=== PATIENT | female | born 1995 | race African-American/Black ===

== ENCOUNTER 2017-01-02 17:38 | Emergency (ER) | payer OTHER ==
[2017-01-02] MEDS ORDERED: MORPHINE 10 MG/ML VIAL IVP STA (18:02)
--- NOTE | 2017-01-02 18:05 | ED Physician Documentation ---
PD HPI ABD PAIN - Stated complaint Stated Complaint: ABD PX - Chief complaint Chief Complaint: Abd Pain - History obtained from History obtained from: Patient - History of Present Illness Timing - onset: Other (21yo G0 with low abd pain that was sudden onset pelvic pain about 2pm today. Had a similar episode about 1 month ago that resolved without medical intervention. Pain is sharp, she feels it in the suprapubic area , not associated with nausea or vomiting. She does have chronic mild intermittent nausea after cholecystectomy was which was last year. She had a normal bowel movement yesterday. Her last menses was just under month ago and she should be due soon. 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 - Present Medications Home Medications: Ambulatory Orders Medication Instructions Recorded Confirmed No Known Home Medications [No 02/18/16 01/02/17 Known Home Medications] - Allergies Allergies/Adverse Reactions: Allergies Allergy/AdvReac Type Severity Reaction Status Date / Time No Known Drug Allergies Allergy Verified 01/02/17 19:17 - Social History Does the pt smoke?: Yes Smoking Status: Current every day smoker Does the pt drink ETOH?: No Does the pt have substance abuse?: No - Immunizations Immunizations are current?: Yes PD ED PE NORMAL - Vitals Vital signs reviewed: Yes - General General: Alert and oriented X 3, No acute distress - HEENT HEENT: PERRL, EOMI - Neck Neck: Supple, no meningeal sign, No bony TTP - Cardiac Cardiac: RRR, No murmur - Respiratory Respiratory: No respiratory distress, Clear bilaterally - Abdomen Abdomen: Normal bowel sounds, Soft, Other (She has modest suprapubic tenderness , mild lower quadrant tenderness on either side which does not lateralize. No surgical signs. No upper abdominal tenderness.) - Back Back: No CVA TTP, No spinal TTP - Derm Derm: Normal color, Warm and dry - Extremities Extremities: No edema, No calf tenderness / cord - Neuro Neuro: Alert and oriented X 3, Normal speech - Psych Psych: Normal mood, Normal affect Results - Vitals Vitals: Vital Signs - 24 hr 01/02/17 01/02/17 01/02/17 17:44 19:13 19:39 Temperature 36.8 C 36.8 C Heart Rate 82 79 68 Respiratory 16 16 14 Rate Blood Pressure 114/76 116/66 110/57 L O2 Saturation 100 99 99 01/02/17 21:45 Temperature 36.9 C Heart Rate 74 Respiratory 16 Rate Blood Pressure 102/59 L O2 Saturation 100 Oxygen O2 Source Room air - Labs Labs: Laboratory Tests 01/02/17 01/02/17 01/02/17 18:30 18:30 18:30 WBC 9.9 RBC 4.43 Hgb 13.8 Hct 42.1 MCV 94.9 MCH 31.2 H MCHC 32.9 RDW 12.3 Plt Count 281 MPV 8.4 Neut # 6.6 Lymph # 2.3 Saline # 0.8 Eos # 0.1 Baso # 0.0 Absolute Nucleated RBC 0.00 Nucleated RBC % 0.0 Sodium 138 Potassium 3.5 Chloride 102 Carbon Dioxide 26 Anion Gap 10.0 BUN 13 Creatinine 0.9 Estimated GFR (MDRD) 94 Glucose 79 Calcium 9.6 Total Bilirubin 0.6 AST 22 ALT 14 Alkaline Phosphatase 50 Total Protein 8.2 Albumin 4.7 Globulin 3.5 Albumin/Globulin Ratio 1.3 Lipase 31 Urine Color YELLOW Urine Clarity CLEAR Urine pH 6.0 Ur Specific [place] 1.025 Urine Protein NEGATIVE Urine Glucose (UA) NEGATIVE Urine Ketones NEGATIVE Urine Occult Blood TRACE-INTA Urine Nitrite NEGATIVE Urine Bilirubin NEGATIVE Urine Urobilinogen 0.2 (NORMAL) Ur Leukocyte Esterase NEGATIVE Ur Microscopic Review NOT INDICATED Urine Culture Comments NOT INDICATED Urine HCG, Qual NEGATIVE - Rads (name of study) Pelvic sono Radiology: Prelim report reviewed (Right ovary is enlarged and contains a mildly complex cyst measuring 5 cm with blood flow presents on Doppler and small free fluid in the pelvis.) PD MEDICAL DECISION MAKING - ED course ED course: 21-year-old non woman with sudden onset pelvic pain today Found to have ovarian cyst on ultrasound with benign labs. [place] better after Toradol. Departure - Departure Disposition: 01 Home, Self Care Clinical Impression: Ovarian cyst Qualifiers: Laterality: right Qualified Code(s): N83.201 - Unspecified ovarian cyst, right side Condition: Good Record reviewed to determine appropriate education?: Yes Instructions: ED Cyst Ovarian Comments: [place] give him[place]her a copy of the ultrasound read. I suspect he or she will want to get a repeat ultrasound in a few weeks to reassess the cyst and make sure it is gone. Discharge Date/Time: 01/02/17 22:03
[2017-01-02 18:40] LABS: BASOPHILS % (AUTO) 0.4 %; BILIRUBIN,URINE NEGATIVE (NEGATIVE); EOSINOPHILS # (AUTO) 0.1 10^3/uL (0.0-0.7); EOSINOPHILS % (AUTO) 1.4 %; HCT - HEMATOCRIT 42.1 % (37.0-47.0); HGB - HEMOGLOBIN 13.8 g/dL (12.0-16.0); LYMPHOCYTES # (AUTO) 2.3 10^3/uL (1.5-3.5); LYMPHOCYTES % (AUTO) 23.7 %; MEAN CORPUSCULAR HEMOGLOBIN 31.2 pg (27.0-31.0); MEAN CORPUSCULAR HGB CONC 32.9 g/dL (32.0-36.0); MEAN CORPUSCULAR VOLUME 94.9 fL (81.0-99.0); MEAN PLATELET VOLUME 8.4 fL (7.9-10.8); MONOCYTES # (AUTO) 0.8 10^3/uL (0.0-1.0); MONOCYTES % (AUTO) 7.9 %; NEUTROPHILS # (AUTO) 6.6 10^3/uL (1.5-6.6); NEUTROPHILS % (AUTO) 66.6 %; RED BLOOD COUNT 4.43 10^6/uL (4.20-5.40); RED CELL DISTRIBUTION WIDTH 12.3 % (12.0-15.0); UNCORRECTED WHITE BLOOD COUNT 9.9 x10^3/uL; WHITE BLOOD COUNT 9.9 x10^3/uL (4.8-10.8)
[2017-01-02 18:45] LABS: HCG UR QUAL NEGATIVE; UA CHARGE (STRIP ONLY) YES; UR CULTURE IF IND NOT INDICATED
[2017-01-02] MEDS ORDERED: MORPHINE 10 MG/ML VIAL ONE (18:45)
[2017-01-02 18:53] LABS: ALBUMIN/GLOBULIN RATIO 1.3 (1.0-2.2); BILIRUBIN,TOTAL 0.6 mg/dL (0.2-1.0); CALCIUM 9.6 mg/dL (8.5-10.3); CREATININE 0.9 mg/dL (0.4-1.0); POTASSIUM 3.5 mmol/L (3.5-5.0); TOTAL PROTEIN 8.2 g/dL (6.7-8.2)
[2017-01-02] MEDS ORDERED: KETOROLAC 60 MG/2 ML VIAL IVP STA (19:12)
[2017-01-02] MEDS ORDERED: KETOROLAC 30 MG/ML VIAL ONE (19:24)
--- NOTE | 2017-01-02 21:43 | Ultrasound Preliminary Report ---
Exam: US PELVIC COMPLETE - NON OB IMPRESSION: 1. Right ovary is enlarged and contains a mildly complex cyst measuring 5 cm. There is blood flow pre sent in the ovary on Doppler 2. Small free fluid in the pelvis. [facility] SITE ID: [id number]
[2017-01-02 21:45] VITALS: BP 102/59
--- NOTE | 2017-01-02 21:46 | Ultrasound Report ---
EXAM: PELVIC ULTRASOUND EXAM DATE: 01/02/2017 08:13 PM. CLINICAL HISTORY: Pelvic pain. COMPARISON: None. TECHNIQUE: Realtime transabdominal pelvic scan performed to identify the uterus and adnexa and as an overview of other pelvic structures, with static image documentation. FINDINGS: Uterus: 8.5 x 3.7 x 5.1 cm, volume 84 cc. Anteverted position. Normal overall size and echotexture. Masses: None. Endometrium: 7 mm. Normal. Cervix: Unremarkable. Right Ovary: 6.1 x 3.7 x 6.5 cm, volume 77 cc. There is a cyst with 2 internal septations versus 2 ad jacent cysts located within the right ovary. Overall, this cyst measures 5 x 2.5 x 3.4 cm. . Blood fl ow is present in the right ovary on Doppler. Left Ovary: 3 x 1.6 x 2.1 cm, volume 5.2 cc. Normal echotexture and blood flow. Free Fluid: Small Other: None. IMPRESSION: 1. Right ovary is enlarged and contains a mildly complex cyst measuring 5 cm. There is blood flow pre sent in the ovary on Doppler 2. Small free fluid in the pelvis. [facility] Referring Provider Line: [phone] SITE ID: [id number]
[2017-01-02] MEDS ORDERED: HYDROcod/ACET 5/325 Prepack 6 PO STA (21:53)
[2017-01-02] MEDS ORDERED: HYDROcod/ACET 5/325 Prepack 6 PO ONE (22:00)
== END 2017-01-02 22:03 | disposition home or self-care (01) ==
LOC: ED 17:38
DX: N83.201 Unspecified ovarian cyst, right side (principal); F17.200 Nicotine dependence, unspecified, uncomplicated
CPT/HCPCS: 36415; 76856; 80053; 81001; 81003; 81025; 83690; 85025; 87086; 96374; 96375; 99283; 99284

== ENCOUNTER 2017-08-23 15:35 | Emergency (ER) | payer OTHER ==
[2017-08-23 15:42] VITALS: BP 119/74
--- NOTE | 2017-08-23 16:00 | ED Physician Documentation ---
PD HPI FEMALE - Stated complaint Stated Complaint: FEMALE - Chief complaint Chief Complaint: General - History obtained from History obtained from: Patient, Family - History of Present Illness Timing - onset: How many days ago (3) Timing - duration: Days (3) Timing - details: Gradual onset, Still present Associated symptoms: Vaginal discharge, Other (vaginal itching like yeast infection) Contributing factors: No: Similar symptoms before: Diagnosis (yeast vaginitis.) Recently seen: Surgery - Additional information Additional information: 21-year-old female has been having a vaginal itch for the past 3 days. She had her tonsils out on Saturday developed this itch the following day and she has had this previously with yeast vaginitis. She states that Monistat has not worked for her previously but the Diflucan has. Review of Systems Constitutional: denies: Fever Nose: denies: Congestion Throat: reports: Sore throat Respiratory: denies: Cough GI: denies: Vomiting : reports: Discharge, Other (vaginal itchint). 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 HEENT: Tonsil/Adenoidectomy - Present Medications Home Medications: Ambulatory Orders Medication Instructions Recorded Confirmed Fluconazole [Diflucan] 150 mg PO ONCE #1 tablet 08/23/17 metFORMIN [Glucophage] 500 mg PO TID 08/23/17 08/23/17 oxyCODONE [Roxicodone] 5 mg PO ONCE 08/23/17 08/23/17 - Allergies Allergies/Adverse Reactions: Allergies Allergy/AdvReac Type Severity Reaction Status Date / Time No Known Drug Allergies Allergy Verified 08/23/17 15:41 - Social History Does the pt smoke?: Yes Smoking Status: Current every day smoker Does the pt drink ETOH?: No Does the pt have substance abuse?: No - Immunizations Immunizations are current?: Yes - POLST Patient has POLST: No PD ED PE NORMAL - Vitals Vital signs reviewed: Yes (normal ) - General General: Alert and oriented X 3, No acute distress, Well developed/nourished - HEENT HEENT: Atraumatic, PERRL - Respiratory Respiratory: No respiratory distress - Back Back: No CVA TTP - Derm Derm: Normal color, Warm and dry, No rash - Extremities Extremities: No deformity, No edema - Neuro Neuro: No motor deficit, No sensory deficit Eye Opening: Spontaneous Motor: Obeys Commands Verbal: Oriented GCS Score: 15 - Psych Psych: Normal mood, Normal affect Results - Vitals Vitals: Vital Signs - 24 hr 08/23/17 15:39 Temperature 36.4 C L Heart Rate 89 Respiratory 18 Rate Blood Pressure 119/74 O2 Saturation 100 Oxygen O2 Source Room air PD MEDICAL DECISION MAKING - ED course Complexity details: considered differential, d/w patient, d/w family ED course: 31-year-old female with vaginal itching has had a test done earlier this week prior to her surgery and she is opting for treatment of yeast with Diflucan. Departure - Departure Disposition: 01 Home, Self Care Clinical Impression: Yeast vaginitis Condition: Stable Instructions: ED Vaginal Infec Fungal Lavinia Follow-Up: LISA RICHTER [Primary Care Provider] - Prescriptions: Fluconazole [Diflucan] 150 mg PO ONCE #1 tablet
== END 2017-08-23 16:21 | disposition home or self-care (01) ==
LOC: ED 15:35
DX: N76.0 Acute vaginitis (principal); B37.3 Candidiasis of vulva and vagina; F17.200 Nicotine dependence, unspecified, uncomplicated
CPT/HCPCS: 99283

== ENCOUNTER 2017-08-30 12:54 | Emergency (ER) | payer OTHER ==
--- NOTE | 2017-08-30 13:24 | ED Physician Documentation ---
History of Present Illness - Stated complaint Stated Complaint: LOWER AB PX/ + PREG - Chief complaint Chief Complaint: Abd Pain - History obtained from History obtained from: Patient - History of Present Illness Timing: How many weeks ago (1) Pain level max: 5 Pain level now: 5 Improved by: nothing Worsened by: nothing - Additonal information Additional information: Patient is a 21-year-old female who presents to the emergency department bilateral lower quadrant abdominal pain, right greater than left for the past week. She states that this is similar to her prior pain with polycystic ovarian syndrome. She is states that she took 4 tests and they came back positive. She was recently started on Clomid for fertility issues. Denies any vaginal bleeding or discharge. States has never been before. 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 HEENT: Tonsil/Adenoidectomy - Present Medications Home Medications: Ambulatory Orders Medication Instructions Recorded Confirmed metFORMIN [Glucophage] 500 mg PO TID 08/23/17 08/23/17 - Allergies Allergies/Adverse Reactions: Allergies Allergy/AdvReac Type Severity Reaction Status Date / Time No Known Drug Allergies Allergy Verified 08/30/17 13:09 - Living Situation Living Situation: reports: With family Living Arrangement: reports: At home - Social History Does the pt smoke?: Yes Smoking Status: Current every day smoker Does the pt drink ETOH?: No Does the pt have substance abuse?: No - Immunizations Immunizations are current?: Yes - POLST Patient has POLST: No PD ED PE NORMAL - Vitals Vital signs reviewed: Yes - General General: Alert and oriented X 3, No acute distress - HEENT HEENT: Moist mucous membranes - Neck Neck: Supple, no meningeal sign - Cardiac Cardiac: RRR, Strong equal pulses - Respiratory Respiratory: No respiratory distress, Clear bilaterally - Abdomen Abdomen: Soft, Non tender, Non distended - Back Back: No CVA TTP, No spinal TTP - Derm Derm: Warm and dry - Extremities Extremities: No edema - Neuro Neuro: Alert and oriented X 3 - Psych Psych: Normal mood, Normal affect Results - Vitals Vitals: Vital Signs - 24 hr 08/30/17 08/30/17 13:07 15:59 Temperature 36.8 C Heart Rate 86 86 Respiratory 16 16 Rate Blood Pressure 126/83 H 134/81 H O2 Saturation 99 99 Oxygen O2 Source Room air - Labs Labs: Laboratory Tests 08/30/17 08/30/17 08/30/17 13:18 13:25 13:25 WBC 6.8 RBC 3.95 L Hgb 12.5 Hct 37.0 MCV 93.7 MCH 31.7 H MCHC 33.9 RDW 12.1 Plt Count 283 MPV 7.8 L Neut # (Auto) 4.5 Lymph # (Auto) 1.6 [place] # (Auto) 0.6 Eos # (Auto) 0.0 Baso # (Auto) 0.0 Absolute Nucleated RBC 0.00 Nucleated RBC % 0.0 Sodium 134 L Potassium 3.6 Chloride 102 Carbon Dioxide 25 Anion Gap 7.0 BUN 9 Creatinine 0.6 Estimated GFR (MDRD) 150 Glucose 157 H Calcium 9.2 Total Bilirubin 0.5 AST 21 ALT 14 Alkaline Phosphatase 44 Total Protein 7.7 Albumin 4.1 Globulin 3.6 Albumin/Globulin Ratio 1.1 Lipase 24 HCG, Quant Urine Color YELLOW Urine Clarity CLEAR Urine pH 6.0 Ur Specific [place] 1.015 Urine Protein NEGATIVE Urine Glucose (UA) NEGATIVE Urine Ketones NEGATIVE Urine Occult Blood NEGATIVE Urine Nitrite NEGATIVE Urine Bilirubin NEGATIVE Urine Urobilinogen 0.2 (NORMAL) Ur Leukocyte Esterase NEGATIVE Ur Microscopic Review NOT INDICATED Urine Culture Comments NOT INDICATED 08/30/17 13:25 WBC RBC Hgb Hct MCV MCH MCHC RDW Plt Count MPV Neut # (Auto) Lymph # (Auto) [place] # (Auto) Eos # (Auto) Baso # (Auto) Absolute Nucleated RBC Nucleated RBC % Sodium Potassium Chloride Carbon Dioxide Anion Gap BUN Creatinine Estimated GFR (MDRD) Glucose Calcium Total Bilirubin AST ALT Alkaline Phosphatase Total Protein Albumin Globulin Albumin/Globulin Ratio Lipase HCG, Quant 2065.00 Urine Color Urine Clarity Urine pH Ur Specific [place] Urine Protein Urine Glucose (UA) Urine Ketones Urine Occult Blood Urine Nitrite Urine Bilirubin Urine Urobilinogen Ur Leukocyte Esterase Ur Microscopic Review Urine Culture Comments - Rads (name of study) OB US Radiology: Prelim report reviewed, EMP read contemporaneously, See rad report ( No yet seen. A 4.6 x 3.6 x 3.6 cm posterior fibroid. No adnexal mass ) PD MEDICAL DECISION MAKING - ED course Complexity details: reviewed results, re-evaluated patient, considered differential, d/w patient ED course: Patient is a 21-year-old female who presents with lower abdominal pain, with a recently positive test. HCG is approximately 2000. No yet seen on ultrasound, no adnexal masses seen either. She is in the discriminatory zone. 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 Ectopic precautions were given at bedside. Patient counseled regarding signs and symptoms for which I believe and urgent re-evaluation would be necessary. Patient with good understanding of and agreement to plan and is comfortable going home at this time This document was made in part using voice recognition software. While efforts are made to proofread this document, sound alike and grammatical errors may occur. - Sepsis Event Vital Signs: Vital Signs - 24 hr 08/30/17 08/30/17 13:07 15:59 Temperature 36.8 C Heart Rate 86 86 Respiratory 16 16 Rate Blood Pressure 126/83 H 134/81 H O2 Saturation 99 99 Oxygen O2 Source Room air Departure - Departure Disposition: 01 Home, Self Care Clinical Impression: Qualifiers: Weeks of gestation: less than 8 weeks Qualified Code(s): Z3A.01 - Less than 8 weeks gestation of Condition: Good Instructions: ED Abdominal Pain Rule Out Ectopic Follow-Up: Celia Rome MD [Provider Admit Priv/Credential] - Within 3 Days Comments: Follow up with Dr. Rome on Saturday or Saturday for repeat HCG. You are at 2000 today. We do not see a on your ultrasound yet, so we need to be careful to ensure this is not an ectopic . Return immediately for worsening pain or bleeding.
[2017-08-30 13:36] LABS: BASOPHILS % (AUTO) 0.4 %; EOSINOPHILS % (AUTO) 0.4 %; HGB - HEMOGLOBIN 12.5 g/dL (12.0-16.0); LYMPHOCYTES # (AUTO) 1.6 10^3/uL (1.5-3.5); MEAN CORPUSCULAR HEMOGLOBIN 31.7 pg (27.0-31.0); MEAN CORPUSCULAR HGB CONC 33.9 g/dL (32.0-36.0); MEAN CORPUSCULAR VOLUME 93.7 fL (81.0-99.0); MEAN PLATELET VOLUME 7.8 fL (7.9-10.8); MONOCYTES # (AUTO) 0.6 10^3/uL (0.0-1.0); MONOCYTES % (AUTO) 9.4 %; NEUTROPHILS # (AUTO) 4.5 10^3/uL (1.5-6.6); NEUTROPHILS % (AUTO) 65.8 %; PLT - PLATELET COUNT 283 10^3/uL (130-450); RED BLOOD COUNT 3.95 10^6/uL (4.20-5.40); RED CELL DISTRIBUTION WIDTH 12.1 % (12.0-15.0); WHITE BLOOD COUNT 6.8 x10^3/uL (4.8-10.8)
[2017-08-30 13:59] LABS: ALBUMIN 4.1 g/dL (3.2-5.5); ALBUMIN/GLOBULIN RATIO 1.1 (1.0-2.2); BILIRUBIN,TOTAL 0.5 mg/dL (0.2-1.0); CALCIUM 9.2 mg/dL (8.5-10.3); CREATININE 0.6 mg/dL (0.4-1.0); TOTAL PROTEIN 7.7 g/dL (6.7-8.2)
[2017-08-30 14:03] LABS: BILIRUBIN,URINE NEGATIVE (NEGATIVE); GLUCOSE, URINE (UA) NEGATIVE (NEGATIVE); KETONES,URINE (UA) NEGATIVE (NEGATIVE); LEUKOCYTE ESTERASE, URINE NEGATIVE (NEGATIVE); NITRITE,URINE NEGATIVE (NEGATIVE); OCCULT BLOOD,URINE NEGATIVE (NEGATIVE); PROTEIN,URINE NEGATIVE (NEGATIVE); UROBILINOGEN,URINE 0.2 (NORMAL) E.U./dL (NORMAL)
[2017-08-30 14:07] LABS: CLARITY,URINE CLEAR (CLEAR)
--- NOTE | 2017-08-30 15:45 | Ultrasound Report ---
FIRST TRIMESTER OB ULTRASOUND: 08/30/2017 HISTORY: Quantitative hCG 2064. Right lower quadrant pain. Last menstrual period EGA 5 weeks 1 day, JEYSON BY LMP 05/01/2017 TECHNIQUE: Real-time scanning by the clinical support specialist with saved static images reviewed. Transabdominal approach for global evaluation; endovaginal scanning for detailed assessment of the endometrium. FINDINGS: Anteverted uterus with posterior fundal and right-sided transmural fibroid 4.6 x 3.6 x 3.6 cm which mildly deviates the endometrial echo anteriorly. Endometrial echo 9 mm. Gestational sac is not yet seen. Right ovary 4.4 x 2.8 x 3.7 cm, volume 24 mL. Corpus luteum cyst 1.4 x 1.1 x 1.2 cm. Left ovary 4 x 2 x 1.9 cm, volume 8 mL, unremarkable in appearance. Trace free fluid. IMPRESSION 1. INTRAUTERINE GESTATION IS NOT YET SEEN. NO ADNEXAL MASS. 2. A 4.6 X 3.6 X 3.6 CM POSTERIOR FUNDAL AND RIGHT-SIDED TRANSMURAL FIBROID IS PRESENT. 3. OTHERWISE, NEGATIVE. 4. SUGGEST FOLLOWUP ULTRASOUND IN 10-14 DAYS TO CONFIRM VIABILITY. REVISED: REPORT ORIG. SIGNED ON 08/30/2017@1621; ORDERS LINKED ON 10/10/2017 jll TD: 08/30/2017 15:35 ADRIAN
[2017-08-30 15:59] VITALS: BP 134/81
== END 2017-08-30 15:59 | disposition home or self-care (01) ==
LOC: ED 12:54
DX: R10.30 Lower abdominal pain, unspecified (principal); Z32.01 Encounter for pregnancy test, result positive; Z3A.01 Less than 8 weeks gestation of pregnancy; E28.2 Polycystic ovarian syndrome; F17.200 Nicotine dependence, unspecified, uncomplicated
CPT/HCPCS: 36415; 76801; 76817; 80053; 81001; 81003; 83690; 84702; 85025; 87086; 99283

== ENCOUNTER 2017-09-04 18:04 | Emergency (ER) | payer OTHER ==
[2017-09-04 18:46] LABS: BASOPHILS % (AUTO) 0.3 %; EOSINOPHILS % (AUTO) 0.6 %; LYMPHOCYTES # (AUTO) 2.2 10^3/uL (1.5-3.5); LYMPHOCYTES % (AUTO) 25.8 %; MEAN CORPUSCULAR HEMOGLOBIN 31.5 pg (27.0-31.0); MEAN CORPUSCULAR HGB CONC 33.5 g/dL (32.0-36.0); MONOCYTES # (AUTO) 0.6 10^3/uL (0.0-1.0); MONOCYTES % (AUTO) 6.7 %; NEUTROPHILS # (AUTO) 5.8 10^3/uL (1.5-6.6); NEUTROPHILS % (AUTO) 66.6 %; PLT - PLATELET COUNT 298 10^3/uL (130-450); RED BLOOD COUNT 4.12 10^6/uL (4.20-5.40); RED CELL DISTRIBUTION WIDTH 11.7 % (12.0-15.0); WHITE BLOOD COUNT 8.7 x10^3/uL (4.8-10.8)
[2017-09-04 18:58] LABS: ALBUMIN 4.2 g/dL (3.2-5.5); ALBUMIN/GLOBULIN RATIO 1.1 (1.0-2.2); BILIRUBIN,TOTAL 0.8 mg/dL (0.2-1.0); CALCIUM 9.4 mg/dL (8.5-10.3); CREATININE 0.6 mg/dL (0.4-1.0); TOTAL PROTEIN 8.1 g/dL (6.7-8.2)
--- NOTE | 2017-09-04 20:03 | ED Physician Documentation ---
PD HPI FEMALE - Stated complaint Stated Complaint: BLEEDING/6 WEEKS - Chief complaint Chief Complaint: Abd Pain - History obtained from History obtained from: Patient, Family - History of Present Illness Timing - onset: Today Timing - details: Abrupt onset, Now resolved Associated symptoms: Pelvic pain, Vaginal bleeding Contributing factors: OB-COPS History: G (1), P (0) Similar symptoms before: Has not had sx before Recently seen: Not recently seen - Additional information Additional information: Patient is a 21 year old female who is presenting to the emergency department for vaginal bleeding in . patient states that this evening she had vaginal bleeding that was enough to soak through her underwear. Patient had mild cramping with the bleeding. Patient reports that the bleeding has slowed significantly. Review of Systems Ten Systems: 10 systems reviewed and negative : reports: Vaginal bleeding. denies: Frequency, Hesitancy PD PAST MEDICAL HISTORY - Past Medical History COPS: Other (PCOS) - Past Surgical History Past Surgical History: Yes General: Cholecystectomy /COPS: Breast reduction HEENT: Tonsil/Adenoidectomy - Present Medications Home Medications: Ambulatory Orders Medication Instructions Recorded Confirmed metFORMIN [Glucophage] 500 mg PO TID 08/23/17 08/23/17 - Allergies Allergies/Adverse Reactions: Allergies Allergy/AdvReac Type Severity Reaction Status Date / Time No Known Drug Allergies Allergy Verified 09/04/17 18:18 - Social History Does the pt smoke?: Yes Smoking Status: Current every day smoker Does the pt drink ETOH?: No Does the pt have substance abuse?: No - Immunizations Immunizations are current?: Yes - POLST Patient has POLST: No PD ED PE NORMAL - Vitals Vital signs reviewed: Yes - General General: Alert and oriented X 3, Well developed/nourished - HEENT HEENT: Atraumatic, Moist mucous membranes - Cardiac Cardiac: RRR - Respiratory Respiratory: No respiratory distress - Abdomen Abdomen: Soft - Rectal Rectal: Deferred - Derm Derm: Normal color, Warm and dry - Extremities Extremities: No deformity - Neuro Neuro: Alert and oriented X 3 Eye Opening: Spontaneous Motor: Obeys Commands Verbal: Oriented GCS Score: 15 Results - Vitals Vitals: Vital Signs - 24 hr 09/04/17 09/04/17 18:08 22:32 Temperature 36.7 C Heart Rate 91 89 Respiratory 12 16 Rate Blood Pressure 129/75 106/61 O2 Saturation 100 100 Oxygen O2 Source Room air - Labs Labs: Laboratory Tests 09/04/17 09/04/17 09/04/17 18:36 18:36 18:36 WBC 8.7 RBC 4.12 L Hgb 13.0 Hct 38.7 MCV 94.0 MCH 31.5 H MCHC 33.5 RDW 11.7 L Plt Count 298 MPV 8.0 Neut # (Auto) 5.8 Lymph # (Auto) 2.2 [place] # (Auto) 0.6 Eos # (Auto) 0.0 Baso # (Auto) 0.0 Absolute Nucleated RBC 0.01 Nucleated RBC % 0.1 Sodium 132 L Potassium 3.1 L Chloride 101 Carbon Dioxide 25 Anion Gap 6.0 BUN 8 Creatinine 0.6 Estimated GFR (MDRD) 150 Glucose 88 Calcium 9.4 Total Bilirubin 0.8 AST 21 ALT 13 Alkaline Phosphatase 46 Total Protein 8.1 Albumin 4.2 Globulin 3.9 Albumin/Globulin Ratio 1.1 Lipase 24 HCG, Quant Urine Color Urine Clarity Urine pH Ur Specific [place] Urine Protein Urine Glucose (UA) Urine Ketones Urine Occult Blood Urine Nitrite Urine Bilirubin Urine Urobilinogen Ur Leukocyte Esterase Urine RBC Urine WBC Ur Squamous Epith Cells Urine Bacteria Ur Microscopic Review Urine Culture Comments Blood Type A POSITIVE 09/04/17 09/04/17 18:36 20:33 WBC RBC Hgb Hct MCV MCH MCHC RDW Plt Count MPV Neut # (Auto) Lymph # (Auto) [place] # (Auto) Eos # (Auto) Baso # (Auto) Absolute Nucleated RBC Nucleated RBC % Sodium Potassium Chloride Carbon Dioxide Anion Gap BUN Creatinine Estimated GFR (MDRD) Glucose Calcium Total Bilirubin AST ALT Alkaline Phosphatase Total Protein Albumin Globulin Albumin/Globulin Ratio Lipase HCG, Quant 31659.00 Urine Color YELLOW Urine Clarity CLEAR Urine pH 6.0 Ur Specific [place] 1.025 Urine Protein NEGATIVE Urine Glucose (UA) NEGATIVE Urine Ketones NEGATIVE Urine Occult Blood SMALL H Urine Nitrite NEGATIVE Urine Bilirubin NEGATIVE Urine Urobilinogen 0.2 (NORMAL) Ur Leukocyte Esterase NEGATIVE Urine RBC 0-5 Urine WBC 0-3 Ur Squamous Epith Cells RARE Squamous Urine Bacteria None Seen Ur Microscopic Review INDICATED Urine Culture Comments NOT INDICATED Blood Type - Rads (name of study) pelvic ultrasound Radiology: Final report received (intauterine , no pole appreciated approximately 5 weeks) PD MEDICAL DECISION MAKING - ED course Complexity details: reviewed old records, reviewed results, re-evaluated patient , considered differential, d/w patient, d/w family ED course: patient was seen and examined at bedside. Patient was well appearing and hemodynamically stable. labs were drawn, urine was collected. Imaging was ordered. When patient returned from imaging the results were reviewed and the findings were gone over with the family. They were made aware that it was still very early in the and it was impossible to determine usp outcomes. ample time was given to ask and answer questions. patient was Rh postitive. Patient required no further inpatient work up at this time and was stable for discharge with outpatient follow up. - Sepsis Event Vital Signs: Vital Signs - 24 hr 09/04/17 09/04/17 18:08 22:32 Temperature 36.7 C Heart Rate 91 89 Respiratory 12 16 Rate Blood Pressure 129/75 106/61 O2 Saturation 100 100 Oxygen O2 Source Room air Departure - Departure Disposition: 01 Home, Self Care Clinical Impression: Threatened in early Condition: Good Instructions: ED Miscarriage Poss Follow-Up: Celia Rome MD [Primary Care Provider] - Comments: Your diagnostics today were within normal limits. It is early in the so it is still too early to tell. You will need to follow up with your doctor for repeat hcg and ultrasound. You should return to the emergency department if you go through more than one pad every hour, or near syncope, syncope or uncontrollable bleeding. Discharge Date/Time: 09/04/17 22:34
[2017-09-04 20:50] LABS: BILIRUBIN,URINE NEGATIVE (NEGATIVE); GLUCOSE, URINE (UA) NEGATIVE (NEGATIVE); KETONES,URINE (UA) NEGATIVE (NEGATIVE); LEUKOCYTE ESTERASE, URINE NEGATIVE (NEGATIVE); NITRITE,URINE NEGATIVE (NEGATIVE); OCCULT BLOOD,URINE SMALL (NEGATIVE); PROTEIN,URINE NEGATIVE (NEGATIVE); UROBILINOGEN,URINE 0.2 (NORMAL) E.U./dL (NORMAL)
[2017-09-04 20:53] LABS: CLARITY,URINE CLEAR (CLEAR)
[2017-09-04 20:59] LABS: BACTERIA,URINE None Seen /HPF (None Seen); RBC,URINE 0-5 /HPF (0-5); SQUAMOUS EPITHELIAL CELL,UR RARE Squamous (<= Few)
--- NOTE | 2017-09-04 22:19 | Ultrasound Report ---
Procedure Date: 09/04/2017 Accession Number: [id number] / [id number] Procedure: US - OB First Trimester CPT Code: FULL RESULT: EXAM: FIRST TRIMESTER OBSTETRIC ULTRASOUND (Less than 11 weeks) EXAM DATE: 09/04/2017 09:24 PM. CLINICAL HISTORY: Preg vag bleeding. LMP: 07/25/2017. COMPARISONS: None. TECHNIQUE: Transabdominal and transvaginal ultrasound examination with static image documentation. CLINICAL DATES: EGA 5 weeks 6 days with JEYSON 05/11/2018 based on LMP. ASSESSMENT: Gestational Sac: Single intrauterine. Mean gestational sac diameter: 13 mm = 5 weeks 3 days. Embryo: Not seen. Yolk sac: 3 mm. Amniotic fluid: Not accurately assessed at this gestational age. Early placenta: Not visible at this gestational age. Other: No perigestational fluid collection demonstrated. MATERNAL STRUCTURES: Uterus: Anteverted. There is a posterior 4.1 x 3.6 x 4.1 cm intramural fibroid.. Cervix: Closed. Right Ovary/Adnexa: Unremarkable. The ovary measures 4.3 x 2.4 x 4.8 cm, volume 25 cc. Left Ovary/Adnexa: Unremarkable. The ovary measures 3.2 x 1.7 x 2.8 cm, volume 7.9 cc. Free Fluid: None. Other: None. IMPRESSION: 1. Intrauterine gestation with no measurable pole likely due to early gestational age. Follow-up ultrasound in 10-14 days are recommended. 2. Normal ovaries. 3. Posterior uterine 4.1 cm intramural fibroid. RADIA
[2017-09-04 22:33] VITALS: BP 106/61
--- NOTE | 2017-09-05 14:47 | Ultrasound Report ---
Procedure Date: 09/04/2017 Accession Number: [id number] / [id number] Procedure: US - OB Transvaginal CPT Code: FULL RESULT: FINDINGS: IMPRESSION: See report dated 09/04/17 of US OB 1st Trimester - accession # [id number].
== END 2017-09-04 22:34 | disposition home or self-care (01) ==
LOC: ED 18:04
DX: O20.0 Threatened abortion (principal); O99.331 Smoking (tobacco) complicating pregnancy, first trimester; Z3A.01 Less than 8 weeks gestation of pregnancy
CPT/HCPCS: 36415; 76801; 76817; 80053; 81001; 81003; 83690; 84702; 85025; 86900; 86901; 87086; 99283

== ENCOUNTER 2019-07-21 08:23 | Outpatient (CLI) | payer OTHER ==
[2019-07-21 09:18] LABS: HB2 TOTAL 12.3 g/dL; HEMOGLOBIN A1C 0.49 g/dL; HEMOGLOBIN A1C % 5.8 % (4.6-6.2)
[2019-07-21 09:20] LABS: CHOL/HDL RATIO 2.9 (<4.4); CHOLESTEROL 154 mg/dL; HDL CHOLESTEROL 54 mg/dL
== END 2019-07-21 08:24 | disposition home or self-care (01) ==
LOC: LAB 08:23
PROVIDERS: ATTEND Obstetrics & Gynecology
DX: E28.2 Polycystic ovarian syndrome (principal)
CPT/HCPCS: 36415; 80061; 82627; 82951; 83036; 83721; 84403; 84443

== ENCOUNTER 2019-08-19 08:06 | Emergency (ER) | payer OTHER ==
--- NOTE | 2019-08-19 08:41 | ED Physician Documentation ---
PD HPI FEMALE - Stated complaint Stated Complaint: FEMAL - Chief complaint Chief Complaint: Abd Pain - History obtained from History obtained from: Patient - History of Present Illness Timing - onset: How many months ago (2) Timing - details: Gradual onset, Still present, Waxing and waning Associated symptoms: Pelvic pain, Vaginal bleeding Contributing factors: No: OB-INJECTION WAX MOLDER History: G (1), P (1), Ovarian cysts Similar symptoms before: Diagnosis (ovarian cyst) Recently seen: Clinic - Additional information Additional information: 23-year-old female 1 para 1 with a history of polycystic ovarian syndrome has previously had to have ovarian cyst surgically drained and she has developed some pain in her pelvis over the past 2 months that has waxed and waned yesterday. 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 She had some improvement in pain overnight she is beginning developed some bleeding and she is come to the emergency department today seeking an ultrasound. Her pain has been mostly on the right side. She has been in to see her INJECTION WAX MOLDER specialist and is awaiting approval of an ultrasound. Review of Systems Constitutional: denies: Fever, Chills, Myalgias Eyes: denies: Decreased vision Ears: denies: Ear pain Nose: denies: Rhinorrhea / runny nose, Congestion Throat: denies: Sore throat Cardiac: denies: Chest pain / pressure, Palpitations Respiratory: denies: Dyspnea, Cough GI: reports: Abdominal Pain. denies: Nausea, Vomiting, Constipation, Diarrhea : reports: Vaginal bleeding, Other (pelvic cramping). denies: Dysuria, Frequency, Discharge Skin: denies: Rash Musculoskeletal: denies: Neck pain Neurologic: denies: Generalized weakness, Focal weakness, Numbness PD PAST MEDICAL HISTORY - Past Medical History INJECTION WAX MOLDER: Other (PCOS) - Past Surgical History Past Surgical History: Yes General: Cholecystectomy /INJECTION WAX MOLDER: Breast reduction HEENT: Tonsil/Adenoidectomy - Present Medications Home Medications: Ambulatory Orders Medication Instructions Recorded Confirmed No Known Home Medications 08/19/19 08/19/19 - Allergies Allergies/Adverse Reactions: Allergies Allergy/AdvReac Type Severity Reaction Status Date / Time No Known Drug Allergies Allergy Verified 08/19/19 08:10 - Social History Does the pt smoke?: Yes Smoking Status: Current every day smoker Does the pt drink ETOH?: No Does the pt have substance abuse?: No - Immunizations Immunizations are current?: Yes - POLST Patient has POLST: No PD ED PE NORMAL - Vitals Vital signs reviewed: Yes (normal ) - General General: Alert and oriented X 3, No acute distress, Well developed/nourished - HEENT HEENT: Atraumatic, PERRL, EOMI - Neck Neck: Supple, no meningeal sign - Cardiac Cardiac: RRR, No murmur - Respiratory Respiratory: No respiratory distress, Clear bilaterally - Abdomen Abdomen: Normal bowel sounds, Soft, Non distended, No organomegaly, Other (There is a mild suprapubic tenderness without guarding or rebound.) - Back Back: No CVA TTP, No spinal TTP - Derm Derm: Normal color, Warm and dry, No rash - Extremities Extremities: No deformity, No edema, No calf tenderness / cord - Neuro Neuro: Alert and oriented X 3, digital content producer 2-12 intact, No motor deficit, No sensory deficit, Normal speech Eye Opening: Spontaneous Motor: Obeys Commands Verbal: Oriented GCS Score: 15 - Psych Psych: Normal mood, Normal affect Results - Vitals Vitals: Vital Signs - 24 hr 08/19/19 08/19/19 08:11 10:24 Temperature 36.6 C Heart Rate 88 58 L Respiratory 15 18 Rate Blood Pressure 128/61 112/69 O2 Saturation 100 100 Oxygen O2 Source Room air - Labs Labs: Laboratory Tests 08/19/19 08:40 Urine Color YELLOW Urine Clarity CLEAR Urine pH 6.0 Ur Specific [place] 1.025 Urine Protein NEGATIVE Urine Glucose (UA) NEGATIVE Urine Ketones NEGATIVE Urine Occult Blood LARGE H Urine Nitrite NEGATIVE Urine Bilirubin NEGATIVE Urine Urobilinogen 0.2 (NORMAL) Ur Leukocyte Esterase NEGATIVE Urine RBC 11-25 H Urine WBC 0-3 Ur Squamous Epith Cells RARE Squamous Urine Bacteria Few Ur Microscopic Review INDICATED Urine Culture Comments NOT INDICATED Urine HCG, Qual NEGATIVE - Rads (name of study) u/s pelvis Radiology: Prelim report reviewed (Impression: 1. Normal pelvic ultrasound. Arterial and venous blood flow are present to the ovaries bilaterally.), EMP read indepedently, See rad report PD MEDICAL DECISION MAKING - ED course Complexity details: reviewed old records, reviewed results, re-evaluated patient, considered differential, d/w patient ED course: 23-year-old female with a prior history of right ovarian cyst that required drainage has had right-sided pelvic pain for the past 3 months that has been intermittent and exacerbated by movement. She had an episode yesterday where she moved too quickly and she is had an episode last week where she was crawling on the floor with her child both of these led to some sharp pain that resolved spontaneously. She is come to the emergency department today because she developed some vaginal bleeding last night after this episode yesterday and she thought she would get her ultrasound done with concerns of recurrence of her cyst. There is no evidence of cyst today and I have asked the patient to pay particular attention to when her symptoms occur and if they are related to sudden movements indicating abdominal wall muscle strain. I suspect that this is what the patient has today. We did discuss hernia as well.I have asked the patient to follow-up with her INJECTION WAX MOLDER doctor about the vaginal bleeding and other etiologies of pelvic pain. She has had prior laparoscopy with her surgery and at that time did not have any evidence of endometriosis. Departure - Departure Disposition: 01 Home, Self Care Clinical Impression: Strain of abdominal muscle Qualifiers: Encounter type: initial encounter Qualified Code(s): S39.011A - Strain of muscle, fascia and tendon of abdomen, initial encounter Condition: Stable Instructions: ED Strain Abdominal Muscle Follow-Up: GOMEZ Rosa [Provider Group] Comments: Today we did not find any abnormality to the urine the urine test was negative and the pelvic ultrasound showed normal-appearing uterus and ovary. I do not have an adequate explanation for your irregular bleeding but I suspect the pain you have been having in your right lower side is related to an abdominal wall muscle strain and these notoriously take some time to heal and are usually a diagnosis made on the basis of exclusion.
[2019-08-19 08:49] LABS: BILIRUBIN,URINE NEGATIVE (NEGATIVE); GLUCOSE, URINE (UA) NEGATIVE (NEGATIVE); KETONES,URINE (UA) NEGATIVE (NEGATIVE); LEUKOCYTE ESTERASE, URINE NEGATIVE (NEGATIVE); NITRITE,URINE NEGATIVE (NEGATIVE); OCCULT BLOOD,URINE LARGE (NEGATIVE); PROTEIN,URINE NEGATIVE (NEGATIVE); UROBILINOGEN,URINE 0.2 (NORMAL) E.U./dL (NORMAL)
[2019-08-19 08:51] LABS: CLARITY,URINE CLEAR (CLEAR)
[2019-08-19 08:52] LABS: HCG UR QUAL NEGATIVE
[2019-08-19 09:01] LABS: BACTERIA,URINE Few /HPF (None Seen); SQUAMOUS EPITHELIAL CELL,UR RARE Squamous (<= Few)
--- NOTE | 2019-08-19 10:21 | Ultrasound Report ---
Reason: pelvic pain, R Procedure Date: 08/19/2019 Accession Number: [id number] / [id number] Procedure: US - Pelvic w/Transvag+Doppler Comp CPT Code: Final Report FULL RESULT: EXAM: PELVIC ULTRASOUND WITH DOPPLERS CLINICAL HISTORY: Right-sided pelvic pain. COMPARISON: PELVIS COMPLETE 01/02/2017 7:44 PM TECHNIQUE: Realtime transabdominal imaging performed to identify the uterus and adnexa and as an overview of other pelvic structures, followed by transvaginal imaging for better assessment of the endometrium and adnexa, with static image documentation. Color flow imaging and Doppler spectral analysis was performed to evaluate blood flow to the ovaries given pelvic pain and clinical concern for ovarian torsion. FINDINGS: Uterus: 8.9 x 4.6 x 5.6 cm, volume 119.9 cc. Anteverted position. Normal overall size and echotexture. Masses: None. Endometrium: 3.0 mm. Normal. Cervix: Unremarkable. Right Ovary: 4.0 x 4.5 x 2.0 cm, volume 18.8 cc. Normal echotexture. Arterial and venous blood flow are present. PSV 27.3 cm/sec. RI 0.6. Adnexa are unremarkable. Left Ovary: 3.5 x 3.0 x 1.9 cm, volume 10.4 cc. Normal echotexture. Arterial and venous blood flow are present. PSV 8.5 cm/sec. RI 0.56. Adnexa are unremarkable. Free Fluid: None. Other: None. IMPRESSION: 1. Normal pelvic ultrasound. 2. Arterial and venous blood flow are present to the ovaries bilaterally. RADIA
[2019-08-19 10:25] VITALS: BP 112/69
== END 2019-08-19 11:06 | disposition home or self-care (01) ==
LOC: ED 08:06
DX: S39.011A Strain of muscle, fascia and tendon of abdomen, initial encounter (principal); X50.9XXA Other and unspecified overexertion or strenuous movements or postures, initial encounter; E28.2 Polycystic ovarian syndrome; F17.200 Nicotine dependence, unspecified, uncomplicated
CPT/HCPCS: 76830; 76856; 81001; 81003; 81025; 87086; 93975; 99284

== ENCOUNTER 2019-12-18 07:00 | Outpatient (CLI) | payer OTHER ==
[2019-12-18 21:39] LABS: CANDIDA GROUP DNA NEGATIVE (NEGATIVE); CANDIDA KRUSEI DNA NEGATIVE (NEGATIVE); TRICHOMONAS VAGINALIS DNA NEGATIVE (NEGATIVE)
== END 2019-12-18 23:59 | disposition home or self-care (01) ==
LOC: LAB.R 07:00
PROVIDERS: ATTEND Nurse Practitioner Obstetrics & Gynecology
DX: N89.8 Other specified noninflammatory disorders of vagina (principal)
CPT/HCPCS: 87661; 87801

== ENCOUNTER 2019-12-25 08:27 | Outpatient (CLI) | payer OTHER ==
[2019-12-29 16:26] LABS: HSV 2 IGG TYPE SPECIFIC AB <0.90 index
== END 2019-12-25 08:28 | disposition home or self-care (01) ==
LOC: LAB 08:27
PROVIDERS: ATTEND Obstetrics & Gynecology
DX: N90.89 Other specified noninflammatory disorders of vulva and perineum (principal)
CPT/HCPCS: 36415; 81599; 86695; 86696

== ENCOUNTER 2020-02-06 12:12 | Emergency (ER) | payer OTHER ==
[2020-02-06 12:53] VITALS: BP 116/74
--- NOTE | 2020-02-06 14:22 | ED Physician Documentation ---
History of Present Illness - Stated complaint Stated Complaint: NAUSEA,FATIGUE,LIGHTHEADED - Chief complaint Chief Complaint: General - History obtained from History obtained from: Patient - History of Present Illness Pain level max: 5 Pain level now: 4 - Additonal information Additional information: 27-year-old female presents to the emergency department with multiple medical complaints. She states that she has had intermittent right-sided pelvic pain for several months. Seems to be worsening over the past week or so. She states she has been told she had an ovarian cyst in the past. Patient states that she was diagnosed with herpes in November. Patient states that she has had increasing outbreaks over the past 2 months. The valacyclovir does not seem to be helping. She states that she has sores in her mouth. She states the genital sores are worsening as well. She states that she has white vaginal discharge that has been ongoing. Nothing seems to make it better or worse. She states she has had negative HIV testing and STD testing. Patient also states that she has lost weight over the past several months. She states she has had decreased appetite and feels generally tired. Nothing seems to make it better or worse. Review of Systems Ten Systems: 10 systems reviewed and negative Constitutional: denies: Fever, Chills Ears: denies: Ear pain Nose: denies: Congestion Throat: denies: Sore throat Cardiac: denies: Chest pain / pressure Respiratory: denies: Cough GI: denies: Abdominal Pain, Nausea, Vomiting, Diarrhea : reports: Discharge (white, Thick). denies: Dysuria, Frequency, Hesitancy, Now EGA Skin: denies: Rash Musculoskeletal: denies: Neck pain, Back pain Neurologic: denies: Headache PD PAST MEDICAL HISTORY - Past Medical History Past Medical History: No DOUGH MIXER: Other - Past Surgical History Past Surgical History: Yes General: Cholecystectomy /DOUGH MIXER: Breast reduction HEENT: Tonsil/Adenoidectomy - Present Medications Home Medications: Ambulatory Orders Medication Instructions Recorded Confirmed Valacyclovir HCl [Valtrex] 1,000 mg PO BID 02/06/20 02/06/20 - Allergies Allergies/Adverse Reactions: Allergies Allergy/AdvReac Type Severity Reaction Status Date / Time No Known Drug Allergies Allergy Verified 02/06/20 13:29 - Living Situation Living Arrangement: reports: At home - Social History Does the pt smoke?: Yes Smoking Status: Current every day smoker Does the pt drink ETOH?: No Does the pt have substance abuse?: No - Immunizations Immunizations are current?: Yes - POLST Patient has POLST: No PD ED PE NORMAL - Vitals Vital signs reviewed: Yes - General General: Alert and oriented X 3, No acute distress - HEENT HEENT: Moist mucous membranes, Other (small ulcerations on her inner cheeks. normal facial exam, no lesions. ) - Neck Neck: Supple, no meningeal sign - Cardiac Cardiac: RRR, Strong equal pulses - Respiratory Respiratory: No respiratory distress, Clear bilaterally - Abdomen Abdomen: Soft, Non distended, Other (mild TTP R pelvic area. no peritoneal signs.) - Female Female : Passenger Service Agent present (JUAN Robbins), Other (Thick, white vaginal discharge. Erythematous cervix. Mild adnexal tenderness bilaterally) - Back Back: No CVA TTP - Derm Derm: Warm and dry - Extremities Extremities: No edema - Neuro Neuro: Alert and oriented X 3, cotton washer 2-12 intact, No motor deficit, No sensory deficit, Normal speech Eye Opening: Spontaneous Motor: Obeys Commands Verbal: Oriented GCS Score: 15 - Psych Psych: Normal mood, Normal affect Results - Vitals Vitals: Vital Signs - 24 hr 02/06/20 12:47 Temperature 36.3 C L Heart Rate 60 Respiratory 18 Rate Blood Pressure 116/74 O2 Saturation 99 Oxygen O2 Source Room air - Labs Labs: Laboratory Tests 02/06/20 02/06/20 02/06/20 14:55 14:55 14:55 WBC 7.4 RBC 4.39 Hgb 14.2 Hct 41.9 MCV 95.4 MCH 32.3 H MCHC 33.9 RDW 12.7 Plt Count 237 MPV 10.1 Neut # (Auto) 4.4 Lymph # (Auto) 2.2 Wirt # (Auto) 0.7 Eos # (Auto) 0.1 Baso # (Auto) 0.0 Absolute Nucleated RBC 0.00 Nucleated RBC % 0.0 Sodium 137 Potassium 3.3 L Chloride 101 Carbon Dioxide 24 Anion Gap 12.0 BUN 14 Creatinine 0.7 Estimated GFR (MDRD) 123 Glucose 70 Calcium 9.8 Total Bilirubin 2.1 H AST 15 ALT 13 Alkaline Phosphatase 42 Total Protein 8.4 H Albumin 4.9 Globulin 3.5 Albumin/Globulin Ratio 1.4 Lipase 24 TSH 0.47 Free T4 1.00 Urine Color Urine Clarity Urine pH Ur Specific [place] Urine Protein Urine Glucose (UA) Urine Ketones Urine Occult Blood Urine Nitrite Urine Bilirubin Urine Urobilinogen Ur Leukocyte Esterase Ur Microscopic Review Urine Culture Comments Urine HCG, Qual C. glabrata (PCR) C. krusei (PCR) Lavinia species DNA Chlam trachomat DNA PCR N.gonorrhoeae DNA (PCR) T. vaginalis (PCR) Bact Vaginosis (PCR) 02/06/20 02/06/20 02/06/20 16:40 16:40 16:40 WBC RBC Hgb Hct MCV MCH MCHC RDW Plt Count MPV Neut # (Auto) Lymph # (Auto) Wirt # (Auto) Eos # (Auto) Baso # (Auto) Absolute Nucleated RBC Nucleated RBC % Sodium Potassium Chloride Carbon Dioxide Anion Gap BUN Creatinine Estimated GFR (MDRD) Glucose Calcium Total Bilirubin AST ALT Alkaline Phosphatase Total Protein Albumin Globulin Albumin/Globulin Ratio Lipase TSH Free T4 Urine Color YELLOW Urine Clarity CLEAR Urine pH 5.5 Ur Specific [place] 1.025 Urine Protein NEGATIVE Urine Glucose (UA) NEGATIVE Urine Ketones 40 H Urine Occult Blood NEGATIVE Urine Nitrite NEGATIVE Urine Bilirubin NEGATIVE Urine Urobilinogen 0.2 (NORMAL) Ur Leukocyte Esterase NEGATIVE Ur Microscopic Review NOT INDICATED Urine Culture Comments NOT INDICATED Urine HCG, Qual NEGATIVE C. glabrata (PCR) NEGATIVE C. krusei (PCR) NEGATIVE Lavinia species DNA POSITIVE A Chlam trachomat DNA PCR NEGATIVE N.gonorrhoeae DNA (PCR) NEGATIVE T. vaginalis (PCR) NEGATIVE NEGATIVE Bact Vaginosis (PCR) NEGATIVE - Rads (name of study) pelvic US Radiology: Prelim report reviewed, EMP read contemporaneously, See rad report PD MEDICAL DECISION MAKING - ED course Complexity details: reviewed old records, reviewed results, re-evaluated patient, considered differential, d/w patient ED course: 24-year-old female presents to the emergency department concerns about herpes simplex virus infection. Does not appear to have an active infection. Her bacterial vaginitis panel is positive for Lavinia, therefore given Diflucan. Swabs were sent for HSV as well as gonorrhea, chlamydia and trichomonas. Patient is afebrile. Well-appearing, nontoxic. No significant laboratory abnormalities. We will have her continue her current medications and follow-up with her care for further care. Patient counseled regarding signs and symptoms for which I believe and urgent re-evaluation would be necessary. Patient with good understanding of and agreement to plan and is comfortable going home at this time This document was made in part using voice recognition software. While efforts are made to proofread this document, sound alike and grammatical errors may occur. 1. Findings suggestive of polycystic ovarian syndrome within the left ovary in the appropriate clinical setting. 2. No acute process. 3. No evidence of torsion at the time of the examination. Departure - Departure Disposition: Home, Self Care Clinical Impression: Cervicitis, Bacterial vaginitis Ovarian cyst Qualifiers: Laterality: unspecified laterality Qualified Code(s): N83.209 - Unspecified ovarian cyst, unspecified side Condition: Good Instructions: ED Vaginosis Bacterial Follow-Up: your,doctor in 1 week [Other] Comments: We will call you with the results of the vaginitis panel tonight, the gonorrhea, chlamydia, herpes testing will take 1-3 days. continue your valtrex at home. Return if you worsen. Discharge Date/Time: 02/06/20 18:00
[2020-02-06 15:11] LABS: BASOPHILS % (AUTO) 0.5 %; EOSINOPHILS # (AUTO) 0.1 10^3/uL (0.0-0.7); EOSINOPHILS % (AUTO) 0.7 %; HGB - HEMOGLOBIN 14.2 g/dL (12.0-16.0); LYMPHOCYTES # (AUTO) 2.2 10^3/uL (1.5-3.5); MEAN CORPUSCULAR HEMOGLOBIN 32.3 pg (27.0-31.0); MEAN CORPUSCULAR HGB CONC 33.9 g/dL (32.0-36.0); MEAN CORPUSCULAR VOLUME 95.4 fL (81.0-99.0); MEAN PLATELET VOLUME 10.1 fL (7.9-10.8); MONOCYTES # (AUTO) 0.7 10^3/uL (0.0-1.0); MONOCYTES % (AUTO) 8.8 %; NEUTROPHILS # (AUTO) 4.4 10^3/uL (1.5-6.6); NEUTROPHILS % (AUTO) 59.9 %; PLT - PLATELET COUNT 237 10^3/uL (130-450); RED BLOOD COUNT 4.39 10^6/uL (4.20-5.40); RED CELL DISTRIBUTION WIDTH 12.7 % (12.0-15.0); WHITE BLOOD COUNT 7.4 x10^3/uL (4.8-10.8)
[2020-02-06 15:28] LABS: ALBUMIN 4.9 g/dL (3.2-5.5); ALBUMIN/GLOBULIN RATIO 1.4 (1.0-2.2); BILIRUBIN,TOTAL 2.1 mg/dL (0.2-1.0); CALCIUM 9.8 mg/dL (8.5-10.3); CREATININE 0.7 mg/dL (0.4-1.0); TOTAL PROTEIN 8.4 g/dL (6.7-8.2)
[2020-02-06 15:45] LABS: THYROID STIMULATING HORMONE 0.47 uIU/mL (0.34-5.60)
--- NOTE | 2020-02-06 16:51 | Ultrasound Report ---
PROCEDURE: Pelvic w/Transvag+Doppler Comp INDICATIONS: pelvic pain, R TECHNIQUE: Real-time scanning was performed of the pelvic organs, with image documentation. Additional endovagi nal scanning was necessary due to incomplete visualization of the adnexal and endometrial structures by transabdominal scanning. COMPARISON: None. FINDINGS: Transabdominal scanning: Limited scanning through the kidneys shows no hydronephrosis. No pathologi c free abdominal or pelvic fluid. Endovaginal scanning: Uterus: Uterus is normal in size at 8.5 x 5.4 cm. The endometrium measures 9 mm in combined thickne ss. Doppler imaging demonstrates intact blood flow to bilateral ovaries. Ovaries: Less than 12 right ovarian follicles. Greater than 12 left ovarian follicles with a "string of pearls" sign. IMPRESSION: 1. Findings suggestive of polycystic ovarian syndrome within the left ovary in the appropriate clinic al setting. 2. No acute process. 3. No evidence of torsion at the time of the examination. Reviewed by: Jaime You MD on 02/06/2020 3:50 PM [facility] Approved by: Jaime You MD on 02/06/2020 3:50 PM [facility] Station ID: [id number]
[2020-02-06 16:56] LABS: BILIRUBIN,URINE NEGATIVE (NEGATIVE); GLUCOSE, URINE (UA) NEGATIVE (NEGATIVE); KETONES,URINE (UA) 40 mg/dL (NEGATIVE); LEUKOCYTE ESTERASE, URINE NEGATIVE (NEGATIVE); NITRITE,URINE NEGATIVE (NEGATIVE); OCCULT BLOOD,URINE NEGATIVE (NEGATIVE); PH,URINE 5.5 PH (5.0-7.5); PROTEIN,URINE NEGATIVE (NEGATIVE); UROBILINOGEN,URINE 0.2 (NORMAL) E.U./dL (NORMAL)
[2020-02-06 16:58] LABS: CLARITY,URINE CLEAR (CLEAR); HCG UR QUAL NEGATIVE
[2020-02-06] MEDS ORDERED: metroNIDAZOLE 250 MG TABLET PO STA (17:08)
[2020-02-06 18:38] LABS: CANDIDA GROUP DNA POSITIVE (NEGATIVE); CANDIDA KRUSEI DNA NEGATIVE (NEGATIVE); TRICHOMONAS VAGINALIS DNA NEGATIVE (NEGATIVE)
[2020-02-06] MEDS ORDERED: FLUCONAZOLE 100 MG TABLET PO STA (21:49)
[2020-02-06 22:18] LABS: TRICHOMONAS VAGINALIS DNA NEGATIVE (NEGATIVE)
[2020-02-11 14:08] LABS: SOURCE CERVIX
== END 2020-02-06 18:00 | disposition home or self-care (01) ==
LOC: ED 12:12
DX: N72 Inflammatory disease of cervix uteri (principal); B37.3 Candidiasis of vulva and vagina; N83.202 Unspecified ovarian cyst, left side; K12.1 Other forms of stomatitis; F17.200 Nicotine dependence, unspecified, uncomplicated
CPT/HCPCS: 36415; 76830; 76856; 81003; 81025; 83690; 84439; 87481; 87491; 87529; 87591; 87661; 87801; 93975; 99283; 99284; A9270; 80053; 81001; 84443; 85025; 87086

== ENCOUNTER 2020-03-01 07:00 | Outpatient (CLI) | payer OTHER ==
[2020-03-01 18:35] LABS: BASOPHILS % (AUTO) 0.4 %; EOSINOPHILS % (AUTO) 0.6 %; HGB - HEMOGLOBIN 13.9 g/dL (12.0-16.0); LYMPHOCYTES # (AUTO) 2.5 10^3/uL (1.5-3.5); LYMPHOCYTES % (AUTO) 37.6 %; MEAN CORPUSCULAR HEMOGLOBIN 32.2 pg (27.0-31.0); MEAN CORPUSCULAR HGB CONC 33.2 g/dL (32.0-36.0); MEAN PLATELET VOLUME 10.4 fL (7.9-10.8); MONOCYTES # (AUTO) 0.5 10^3/uL (0.0-1.0); NEUTROPHILS # (AUTO) 3.6 10^3/uL (1.5-6.6); NEUTROPHILS % (AUTO) 53.1 %; PLT - PLATELET COUNT 290 10^3/uL (130-450); RED BLOOD COUNT 4.32 10^6/uL (4.20-5.40); RED CELL DISTRIBUTION WIDTH 12.6 % (12.0-15.0); WHITE BLOOD COUNT 6.7 x10^3/uL (4.8-10.8)
[2020-03-01 18:44] LABS: ALBUMIN 4.7 g/dL (3.2-5.5); ALBUMIN/GLOBULIN RATIO 1.5 (1.0-2.2); BILIRUBIN,TOTAL 1.2 mg/dL (0.2-1.0); CALCIUM 9.6 mg/dL (8.5-10.3); CREATININE 0.7 mg/dL (0.4-1.0); TOTAL PROTEIN 7.9 g/dL (6.7-8.2)
[2020-03-02 12:58] LABS: HIV AG/AB 4TH GEN NON-REACTIVE (NON-REACTIVE)
== END 2020-03-01 23:59 | disposition home or self-care (01) ==
LOC: LAB.WCP 07:00
PROVIDERS: ATTEND Family Medicine
DX: R63.4 Abnormal weight loss (principal); E80.6 Other disorders of bilirubin metabolism; R10.9 Unspecified abdominal pain; N90.89 Other specified noninflammatory disorders of vulva and perineum
CPT/HCPCS: 36415; 80053; 81599; 83615; 85025; 86592; 87389

== ENCOUNTER 2020-03-03 14:34 | Outpatient (CLI) | payer OTHER | END 2020-03-03 23:59 | disposition home or self-care (01) | LOC: LAB.R 14:34 | PROVIDERS: ATTEND Obstetrics & Gynecology | DX: L02.92 Furuncle, unspecified (principal) | CPT/HCPCS: 87081 ==

== ENCOUNTER 2020-03-04 07:42 | Outpatient (CLI) | payer OTHER ==
[2020-03-04] MEDS ORDERED: IOVERSOL 320 50 ML VIAL ONE (07:54)
[2020-03-04] MEDS ORDERED: IOVERSOL 320 100 ML VIAL IVP ONE ×2 (07:54→16:34)
--- NOTE | 2020-03-04 10:11 | CT Report ---
PROCEDURE: Abdomen/Pelvis W INDICATIONS: LOSS OF WEIGHT, HYPERBILIRUBINEMIA, ABD PAIN CONTRAST: IV CONTRAST: Optiray 320 ml: 100 PO CONTRAST: Optiray 320 ml50 TECHNIQUE: After the administration of IV and oral contrast, 5 mm thick sections acquired from the diaphragms to the symphysis. 5 mm thick coronal and sagittal reformats were acquired. For radiation dose reducti on, the following was used: automated exposure control, adjustment of mA and/or kV according to jules ent size. COMPARISON: None. FINDINGS: Image quality: Excellent. ABDOMEN: Lung bases: Lung bases are clear. Heart size is normal. Solid organs: Liver and spleen are normal in size and enhancement. Gallbladder is surgically absent . Biliary system is non dilated. Pancreas enhances normally. No adrenal nodules. Kidneys demonstr ate normal size and enhancement, without hydronephrosis. Peritoneum and bowel: Bowel loops demonstrate normal wall thickness and caliber. The visible portio ns of the appendix are normal. No free fluid or air. Nodes and vessels: No retroperitoneal or mesenteric adenopathy by size criteria. Aorta and inferior vena cava are normal in size. Miscellaneous: No ventral hernias. PELVIS: Genitourinary: Bladder wall thickness is normal. Uterus and left ovary are normal. The right ovary is slightly enlarged and may contain a dominant follicle. Miscellaneous: No inguinal hernias or adenopathy. Bones: No suspicious bony lesions. No vertebral body compression fractures. IMPRESSION: 1. No acute process or explanation for weight loss and abdominal pain. 2. Postcholecystectomy. Reviewed by: Lesley Nathan MD on 03/04/2020 10:10 AM [facility] Approved by: Lesley Nathan MD on 03/04/2020 10:10 AM [facility] Station ID: [id number]
[2020-03-04] MEDS ORDERED: IOVERSOL 320 50 ML VIAL PO ONE (16:35)
== END 2020-03-04 07:43 | disposition home or self-care (01) ==
LOC: DI 07:42
PROVIDERS: ATTEND Family Medicine
DX: R63.4 Abnormal weight loss (principal); E80.6 Other disorders of bilirubin metabolism; R10.9 Unspecified abdominal pain; Z90.49 Acquired absence of other specified parts of digestive tract
CPT/HCPCS: 74177; Q9967

== ENCOUNTER 2020-03-09 15:23 | Outpatient (CLI) | payer OTHER ==
[2020-03-09 18:36] LABS: RHEUMATOID FACTOR NEGATIVE (Negative)
== END 2020-03-09 15:24 | disposition home or self-care (01) ==
LOC: LAB.N 15:23
PROVIDERS: ATTEND Obstetrics & Gynecology
DX: L02.92 Furuncle, unspecified (principal); R63.4 Abnormal weight loss; R10.9 Unspecified abdominal pain; H53.9 Unspecified visual disturbance; N90.89 Other specified noninflammatory disorders of vulva and perineum; L20.9 Atopic dermatitis, unspecified; L73.2 Hidradenitis suppurativa
CPT/HCPCS: 36415; 86038; 86141; 86430

== ENCOUNTER 2020-03-23 08:00 | Outpatient (CLI) | payer OTHER | END 2020-03-23 23:59 | disposition home or self-care (01) | LOC: LAB.WCP 08:00 | PROVIDERS: ATTEND Obstetrics & Gynecology | DX: R79.89 Other specified abnormal findings of blood chemistry (principal) | CPT/HCPCS: 36415; 81599; 86235 ==

== ENCOUNTER 2020-09-15 16:10 | Outpatient (CLI) | payer OTHER ==
[2020-09-15 23:35] LABS: BACTERIAL VAGINOSIS DNA NEGATIVE (NEGATIVE); CANDIDA GLABRATA DNA NEGATIVE (NEGATIVE); CANDIDA GROUP DNA NEGATIVE (NEGATIVE); CANDIDA KRUSEI DNA NEGATIVE (NEGATIVE); TRICHOMONAS VAGINALIS DNA NEGATIVE (NEGATIVE)
[2020-09-16 01:14] LABS: CHLAMYDIA TRACHOMATIS DNA NEGATIVE (NEGATIVE); NEISSERIA GONORRHOEAE DNA NEGATIVE (NEGATIVE); TRICHOMONAS VAGINALIS DNA NEGATIVE (NEGATIVE)
== END 2020-09-15 23:59 | disposition home or self-care (01) ==
LOC: LAB.N 16:10
PROVIDERS: ATTEND Physician Assistant Medical
DX: N76.0 Acute vaginitis (principal)
CPT/HCPCS: 87086; 87491; 87591; 87661; 87801